=== PATIENT | female | born 1965 | race Caucasian/White ===

== ENCOUNTER 2016-09-07 06:01 | Day surgery (SDC) | payer OTHER ==
[2016-09-04 11:13] LABS: HEMATOCRIT 39.2 % (36.0-48.0); HEMOGLOBIN 13.6 g/dL (12.0-16.0)
[~2016-09-07 06:01] MED LIST: ADDER10 PO
== END 2016-09-07 23:59 | disposition home or self-care (01) ==
LOC: MSC 06:01
PROVIDERS: Surgery Plastic and Reconstructive Surgery
PROC: 0H0V0JZ Alteration of Bilateral Breast with Synthetic Substitute, Open Approach (ICD-10-PCS; 2016-09-07)
PROC: 0J080ZZ Alteration of Abdomen Subcutaneous Tissue and Fascia, Open Approach (ICD-10-PCS; principal; 2016-09-07 07:15)
PROC: 0J080ZZ Alteration of Abdomen Subcutaneous Tissue and Fascia, Open Approach (ICD-10-PCS; 2016-09-07 07:15)
DX: Z41.1 Encounter for cosmetic surgery (principal); T75.3XXA Motion sickness, initial encounter; R42 Dizziness and giddiness; Z98.890 Other specified postprocedural states; Z88.8 Allergy status to other drugs, medicaments and biological substances; Z79.899 Other long term (current) drug therapy
CPT/HCPCS: 85014; 85018; 93005; A9270-GY; C1789; J0690; J1580; J2250; J2270; J2370; J2405; J2550; J2710; J3010